=== PATIENT | female | born 1975 ===

== ENCOUNTER 2019-12-09 17:11 | Emergency (ER) | payer MEDICAID ==
[2019-12-09 17:47] VITALS: BP 136/78
[2019-12-09 18:43] LABS: Basophils # (Auto) 0.1 K/mm3 (0.0-0.1); Basophils % (Auto) 0.7 % (0.0-1.8); Eosinophils # (Auto) 0.1 K/mm3 (0.0-0.4); Hematocrit 39.1 % (30.3-42.9); Hemoglobin 13.3 gm/dl (10.1-14.3); Lymphocytes # (Auto) 2.6 K/mm3 (1.2-5.4); Lymphocytes % (Auto) 35.6 % (13.4-35.0); Mean Corpuscular HGB Conc 34 % (30-34); Mean Corpuscular Volume 83 fl (79-97); Monocytes # (Auto) 0.6 K/mm3 (0.0-0.8); Monocytes % (Auto) 7.6 % (0.0-7.3); Platelet Count 242 K/mm3 (140-440); Red Blood Count 4.72 M/mm3 (3.65-5.03); Red Cell Distribution Width 13.2 % (13.2-15.2)
[2019-12-09 19:07] LABS: Alanine Aminotransferase 10 units/L (7-56); Blood Urea Nitrogen 11 mg/dL (7-17); Calcium 9.5 mg/dL (8.4-10.2); Hemolysis Index 7
[2019-12-09 19:11] LABS: BUN/Creatinine Ratio 18
[2019-12-09] MEDS ORDERED: DICYCLOMINE 20 MG TAB PO ONE (22:51)
[2019-12-09] MEDS ORDERED: ONDANSETRON 4 MG ODT TAB PO ONE (22:51)
[2019-12-09] MEDS ORDERED: FAMOTIDINE 20 MG TAB PO ONE (22:51)
[2019-12-09 23:41] LABS: Bacteria,Urine 1+ /HPF (Negative); Bilirubin,Urine NEG (Negative); Blood,Urine SM (Negative); Color,Urine Yellow (Yellow); Urobilinogen,Urine < 2.0 mg/dL (<2.0)
[2019-12-10] MEDS ORDERED: cephALEXin 500 MG CAP PO ONE (00:12)
--- NOTE | 2019-12-10 00:17 | Emergency Department Report ---
ED N/V/D HPI - General Chief complaint: Abdominal Pain Stated complaint: ABD PAIN Time Seen by Provider: 12/09/19 17:49 Source: patient Mode of arrival: Ambulatory Limitations: No Limitations - History of Present Illness Initial comments: Patient is a A0 44-year-old -Polish female with no past medical history presents to the ED with complaint of acute onset persistent intermittent nausea and vomiting, bilateral breast engorgement, abdominal discomfort and bloating, low back pain, urinary frequency and urgency for the last 2 months. Patient states that she is suspected that she may be although she admits to having bilateral tubal ligation 6 years ago. Patient states that in the last 2 months, her menstrual cycle has been irregular. Patient denies dizziness, vaginal bleeding, vaginal discharge, syncope, chest pain, shortness of breath, fever, chills, dysuria, vaginal discharge, dyspareunia, diarrhea, or abdominal pain. MD complaint: nausea, abdominal pain (discomfort), other (low back pain) -: Gradual, month(s) (2) Description of Vomiting: other (No vomiting) Description of Diarrhea: other (No diarrhea) Associated Abdominal Pain: No Location: diffuse Radiation: none Severity: moderate Pain Scale: 3 Quality: aching, dull Consistency: intermittent Improves with: none Worsens with: none Associated Symptoms: denies other symptoms, loss of appetite, malaise, nausea /vomiting. denies: myalgias, chest pain, cough, diaphoresis, fever/chills, headaches, rash, dysuria, shortness of breath, syncope, weakness, other - Related Data Previous Rx's Medication Instructions Recorded Last Taken Type Famotidine [Pepcid] 20 mg PO BID #40 tablet 12/10/19 Unknown Rx Ondansetron [Zofran Odt] 4 mg PO Q6HR PRN #20 tab.rapdis 12/10/19 Unknown Rx cephALEXin [Keflex] 500 mg PO Q8HR #30 cap 12/10/19 Unknown Rx Allergies Allergy/AdvReac Type Severity Reaction Status Date / Time No Known Allergies Allergy Verified 12/09/19 17:47 ED Review of Systems ROS: Stated complaint: ABD PAIN Other details as noted in HPI Constitutional: denies: chills, fever Eyes: denies: eye pain, eye discharge, vision change ENT: denies: ear pain, throat pain Respiratory: other (Bilateral breast pain and engodgement). denies: cough, shortness of breath, wheezing Cardiovascular: denies: chest pain, palpitations Endocrine: no symptoms reported Gastrointestinal: nausea, vomiting. denies: abdominal pain, diarrhea Genitourinary: urgency, frequency. denies: dysuria, discharge Musculoskeletal: back pain (lower). denies: joint swelling, arthralgia Skin: denies: rash, lesions Neurological: denies: headache, weakness, paresthesias Psychiatric: denies: anxiety, depression Hematological/Lymphatic: denies: easy bleeding, easy bruising ED Past Medical Hx - Medications Home Medications: Home Medications Medication Instructions Recorded Confirmed Last Taken Type Famotidine [Pepcid] 20 mg PO BID #40 tablet 12/10/19 Unknown Rx Ondansetron [Zofran Odt] 4 mg PO Q6HR PRN #20 tab.rapdis 12/10/19 Unknown Rx cephALEXin [Keflex] 500 mg PO Q8HR #30 cap 12/10/19 Unknown Rx ED Physical Exam - General Limitations: No Limitations General appearance: alert, in no apparent distress - Head Head exam: Present: atraumatic, normocephalic, normal inspection - Eye Eye exam: Present: normal appearance, PERRL, EOMI Pupils: Present: normal accommodation - ENT ENT exam: Present: normal exam, normal orophraynx, mucous membranes moist, TM's normal bilaterally, normal external ear exam - Neck Neck exam: Present: normal inspection, full ROM - Respiratory Respiratory exam: Present: normal lung sounds bilaterally. Absent: respiratory distress, wheezes, rales, rhonchi, chest wall tenderness, accessory muscle use, decreased breath sounds, prolonged expiratory - Cardiovascular Cardiovascular Exam: Present: regular rate, normal rhythm, normal heart sounds. Absent: systolic murmur, diastolic murmur, rubs, gallop - GI/Abdominal GI/Abdominal exam: Present: soft, normal bowel sounds. Absent: tenderness, guarding, rigid, hyperactive bowel sounds, hypoactive bowel sounds - Extremities Exam Extremities exam: Present: normal inspection, full ROM, normal capillary refill - Back Exam Back exam: Present: normal inspection, full ROM. Absent: tenderness, CVA tenderness (R), CVA tenderness (L), muscle spasm, paraspinal tenderness, vertebral tenderness - Neurological Exam Neurological exam: Present: alert, oriented X3, CN II-XII intact, normal gait, reflexes normal - Psychiatric Psychiatric exam: Present: normal affect, normal mood - Skin Skin exam: Present: warm, dry, intact, normal color. Absent: rash ED Course Vital Signs 12/09/19 17:39 Temperature 98.4 F Pulse Rate 70 Respiratory 18 Rate Blood Pressure 136/78 O2 Sat by Pulse 100 Oximetry ED Medical Decision Making - Lab Data Result diagrams: 12/09/19 18:29 12/09/19 18:29 - Medical Decision Making This is a A0 44-year-old -Polish female with no past medical history presents to the ED with complaint of acute onset persistent intermittent nausea and vomiting, bilateral breast engorgement, abdominal discomfort and bloating, low back pain, urinary frequency and urgency for the last 2 months. Patient states that she is suspected that she may be although she admits to having bilateral tubal ligation 6 years ago. Patient states that in the last 2 months, her menstrual cycle has been irregular. In the ED, patient is alert and oriented x3 and is not in distress. The vital signs are stable. Lab test results were reviewed and are all nonactionable except for urinalysis that showed significant urinary tract infection. Patient was treated in the ED with antiemetics and antacids, patient was also given oral antibiotics Keflex 1 g p.o. x1. On reevaluation, patient nausea resolved patient was discharged home on antiemetics, antacids and oral antibiotics for UTI. Patient was advised to drink more fluids, take medications as prescribed and follow-up with a primary care physician in 7 to 10 days for reevaluation. Patient was advised return to the ED immediately if symptoms get worse. - Differential Diagnosis UTI; ; GERD; Gastroenteritis; Muscle spasm Critical care attestation.: If time is entered above; I have spent that time in minutes in the direct care of this critically ill patient, excluding procedure time. ED Disposition Clinical Impression: Nausea and vomiting in adult, Acute urinary tract infection Disposition: TO HOME OR SELFCARE Is pt being admited?: No Does the pt Need Aspirin: No Condition: Stable Instructions: Abdominal Pain (ED), Urinary Tract Infection in Women (ED) Additional Instructions: Your test results show significant urinary tract infection. The other lab test results are unremarkable. Take medication with food, drink plenty of fluids and follow-up with your primary care physician in 7 to 10 days for reevaluation. Return to the ED immediately if symptoms get worse. Prescriptions: cephALEXin [Keflex] 500 mg PO Q8HR #30 cap Famotidine [Pepcid] 20 mg PO BID #40 tablet Ondansetron [Zofran Odt] 4 mg PO Q6HR PRN #20 tab.rapdis PRN Reason: Nausea Referrals: [facility] [Provider Group] - 7-10 days Time of Disposition: 00:14 Print Language: [place]
== END 2019-12-10 00:30 | disposition home or self-care (01) ==
LOC: ED 17:11
DX: R11.2 Nausea with vomiting, unspecified (principal); N39.0 Urinary tract infection, site not specified; Z79.899 Other long term (current) drug therapy
CPT/HCPCS: 36415; 80053; 81001; 83690; 84702; 85025; Q0162